=== PATIENT | male | born 1985 | race Two or more races ===

== ENCOUNTER 2019-06-26 11:21 | Emergency (ER) | payer SELFPAY ==
[~2019-06-26] VITALS: Ht 182.9 cm; Wt 136.1 kg
[2019-06-26 11:37] VITALS: BP 147/93
== END 2019-06-26 12:57 | disposition home or self-care (01) ==
LOC: ER 11:27
DX: M10.072 Idiopathic gout, left ankle and foot (principal)
CPT/HCPCS: 73630

== ENCOUNTER 2019-10-21 19:14 | Emergency (ER) | payer SELFPAY ==
[~2019-10-21] VITALS: Ht 182.9 cm; Wt 136.1 kg
[2019-10-21 21:19] VITALS: BP 133/58
== END 2019-10-21 21:27 | disposition home or self-care (01) ==
LOC: ER 19:14
DX: B07.0 Plantar wart (principal); M10.9 Gout, unspecified

== ENCOUNTER 2021-08-01 01:53 | Inpatient (IN) | payer MEDICAID, OTHER ==
[~2021-08-01] VITALS: Ht 182.9 cm; Wt 140.1 kg
[2021-08-01 02:53] LABS: Basophils # (auto) 0.3 10 ^3/uL (0-0.2); Basophils % (auto) 3.4 % (0.0-2.0); Eosinophils # (auto) 0 10 ^3/uL (0-0.8); Eosinophils % (auto) 0.5 % (0.0-7.0); Hematocrit 48.1 % (41.0-53.0); Hemoglobin 16.3 g/dL (13.5-17.5); Lymphocytes # (auto) 1.1 10 ^3/uL (0.4-5.4); Lymphocytes % (auto) 13.7 % (10.0-50.0); Mean Corpuscular Hemoglobin 28.8 pg (28.0-32.0); Mean Corpuscular Hgb Conc. 33.9 g/dL (32.0-36.0); Mean Corpuscular Volume 84.9 fL (80.0-100.0); Monocytes # (auto) 0.5 10 ^3/uL (0-1.3); Monocytes % (auto) 5.8 % (0.0-12.0); Neutrophils % (auto) 76.6 % (37.0-80.0); Nucleated Red Blood Cells % 0.1 %; Red Blood Cells 5.66 10^6/uL (4.5-5.90); Red Cell Distribution Width 12.9 % (11.8-14.3); White Blood Cell 7.8 10^3/uL (4.4-10.8)
[2021-08-01 03:19] LABS: INR 1.1 (0.9-1.15)
[2021-08-01 05:05] LABS: Albumin 3.1 g/dL (3.4-5.0); Calcium 7.8 mg/dL (8.5-10.1); Magnesium 2.6 mg/dL (1.6-2.6); Potassium 3.8 mmol/L (3.5-5.1)
[2021-08-01 05:17] LABS: BUN/Creatinine Ratio 12.8; Bilirubin, Total 0.6 mg/dL (0.2-1.0); CRP High Sensitivity 6.82 mg/dL (< 0.3); Total Protein 7.1 g/dL (6.4-8.2)
[2021-08-01] MEDS ORDERED: AZITHROMYCIN 500MG/ 250ML 250 ML IV ONE (05:30)
[2021-08-01] MEDS ORDERED: DexAMETHasone SOD PHOS 10MG/1ML VIAL INJ IV ONE (05:30)
[2021-08-01] MEDS ORDERED: IOHEXOL 350 MG/ML 100ML IJ ONE (05:39)
[2021-08-01] MEDS ORDERED: ACETAMINOPHEN 500 MG TAB PO PRN (05:45)
[2021-08-01] MEDS ORDERED: ONDANSETRON HCL 4 MG/2 ML VIAL IV PRN (05:45)
[2021-08-01] MEDS ORDERED: DOCUSATE SOD 100 MG CAP PO PRN (05:45)
[2021-08-01] MEDS ORDERED: SODIUM CHLORIDE 0.9% 1,000 ML IV SCH (05:45)
[2021-08-01] MEDS ORDERED: HYDROcodone-ACET 5/325MG TAB PO PRN (05:45)
[2021-08-01 06:05] LABS: Urine Bacteria NONE SEEN /hpf (None Seen); Urine Blood Negative /uL (Negative); Urine Mucus FEW (None Seen); Urine Specific Gravity 1.027 (1.001-1.035); Urine WBC 3 /hpf (0 - 3)
[2021-08-01] MEDS ORDERED: MORPHINE SULFATE INJECTION 2 MG/ML SYRG IV PRN (06:15)
[2021-08-01] MEDS ORDERED: NITROGLYCERIN 0.4 MG SL TAB SL PRN (06:15)
[2021-08-01 09:00] VITALS: BP 106/69
[2021-08-01 09:40] VITALS: BP 106/69
[2021-08-01] MEDS: ALBUTEROL SULF HFA 90MCG INH 200DOSE IN PRN ×2 (09:43→23:07)
[2021-08-01] MEDS: BUDESONIDE (INHALATION) 180 MCG IH IN SCH ×2 (09:43→22:00)
[2021-08-01] MEDS ORDERED: REMDESIVIR PER PHARMACY 0 ML IV SCH (10:15)
[2021-08-01] MEDS ORDERED: FUROSEMIDE 20 MG/2 ML VIAL IV ONE (10:15)
[2021-08-01] MEDS ORDERED: REMDESIVIR 200 MG in NS 210ml LOADING DOSE ADULT IV ONE (10:30)
[2021-08-01] MEDS: ASPirin 81 mg TAB PO SCH (10:37)
[2021-08-01] MEDS: FAMOTIDINE (10MG/ML) 2ML VL IV SCH ×2 (10:37→22:11)
[2021-08-01] MEDS: DexAMETHasone SOD PHOS 10MG/1ML VIAL INJ IV SCH (10:37)
[2021-08-01] MEDS: MULTIPLE VITAMIN TAB PO SCH (10:38)
[2021-08-01] MEDS: CHOLECALCIFEROL (VITD3) 2,000 UNIT CAP/TAB PO SCH (10:38)
[2021-08-01] MEDS: ZINC SULFATE 220mg CAP or TAB PO SCH (10:38)
[2021-08-01] MEDS: ENOXAPARIN SOD 40 MG/0.4 ML SYRINGE SC SCH ×2 (10:38→22:07)
[2021-08-01] MEDS: ASCORBIC ACID 1,000 MG TAB PO SCH (10:38)
[2021-08-01 13:00] VITALS: BP 104/53
[2021-08-01 17:00] VITALS: BP 122/78
[2021-08-01 22:00] VITALS: BP 122/69
[2021-08-02 05:00] VITALS: BP 118/61
[2021-08-02] MEDS: BUDESONIDE (INHALATION) 180 MCG IH IN SCH ×2 (06:16→19:52)
[2021-08-02] MEDS: ALBUTEROL SULF HFA 90MCG INH 200DOSE IN PRN ×2 (06:16→23:43)
[2021-08-02 06:34] LABS: Basophils # (auto) 0 10 ^3/uL (0-0.2); Basophils % (auto) 0.1 % (0.0-2.0); Eosinophils # (auto) 0 10 ^3/uL (0-0.8); Hematocrit 46.4 % (41.0-53.0); Hemoglobin 16.1 g/dL (13.5-17.5); Lymphocytes # (auto) 1.2 10 ^3/uL (0.4-5.4); Lymphocytes % (auto) 14.2 % (10.0-50.0); Mean Corpuscular Hemoglobin 29.2 pg (28.0-32.0); Mean Corpuscular Hgb Conc. 34.7 g/dL (32.0-36.0); Mean Corpuscular Volume 84.2 fL (80.0-100.0); Monocytes # (auto) 0.7 10 ^3/uL (0-1.3); Monocytes % (auto) 8.1 % (0.0-12.0); Neutrophils # (auto) 6.3 10 ^3/uL (1.6-8.6); Neutrophils % (auto) 77.6 % (37.0-80.0); Nucleated Red Blood Cells % 0.5 %; Red Blood Cells 5.51 10^6/uL (4.5-5.90); Red Cell Distribution Width 12.9 % (11.8-14.3); White Blood Cell 8.1 10^3/uL (4.4-10.8)
[2021-08-02 06:46] LABS: Calcium 8.2 mg/dL (8.5-10.1); Potassium 4.2 mmol/L (3.5-5.1)
[2021-08-02 06:51] LABS: BUN/Creatinine Ratio 18.9; Bilirubin, Total 0.5 mg/dL (0.2-1.0); Total Protein 6.5 g/dL (6.4-8.2)
[2021-08-02] MEDS: DexAMETHasone SOD PHOS 10MG/1ML VIAL INJ IV SCH (08:14)
[2021-08-02] MEDS: FUROSEMIDE 20 MG/2 ML VIAL IV SCH (08:19)
[2021-08-02] MEDS: AZITHROMYCIN 500MG/ 250ML 250 ML IV SCH (08:20)
[2021-08-02] MEDS: FAMOTIDINE (10MG/ML) 2ML VL IV SCH (08:20)
[2021-08-02] MEDS: ASPirin 81 mg TAB PO SCH (08:20)
[2021-08-02] MEDS: CHOLECALCIFEROL (VITD3) 2,000 UNIT CAP/TAB PO SCH (08:21)
[2021-08-02] MEDS: ZINC SULFATE 220mg CAP or TAB PO SCH (08:21)
[2021-08-02] MEDS: MULTIPLE VITAMIN TAB PO SCH (08:21)
[2021-08-02] MEDS: ASCORBIC ACID 1,000 MG TAB PO SCH (08:21)
[2021-08-02] MEDS: ENOXAPARIN SOD 40 MG/0.4 ML SYRINGE SC SCH ×2 (08:22→22:01)
[2021-08-02 08:30] VITALS: BP 117/60
[2021-08-02] MEDS ORDERED: ERGOCALCIFEROL 50,000 UNIT(1.25MG) CAP PO SCH (12:15)
[2021-08-02 13:00] VITALS: BP 121/63
[2021-08-02] MEDS: REMDESIVIR 100mg 100 MG in SODIUM CHL 0.9% 230 ML IV SCH (14:45)
[2021-08-02 16:30] VITALS: BP 130/74
[2021-08-02 22:00] VITALS: BP 114/65
[2021-08-03 05:00] VITALS: BP 103/58
[2021-08-03] MEDS: BUDESONIDE (INHALATION) 180 MCG IH IN SCH ×2 (07:29→22:00)
[2021-08-03] MEDS: ALBUTEROL SULF HFA 90MCG INH 200DOSE IN PRN ×2 (07:29→22:52)
[2021-08-03] MEDS: DexAMETHasone SOD PHOS 10MG/1ML VIAL INJ IV SCH (09:04)
[2021-08-03] MEDS: FUROSEMIDE 20 MG/2 ML VIAL IV SCH (09:05)
[2021-08-03] MEDS: AZITHROMYCIN 500MG/ 250ML 250 ML IV SCH (09:05)
[2021-08-03] MEDS: FAMOTIDINE 20 MG TAB PO SCH (09:06)
[2021-08-03] MEDS: MULTIPLE VITAMIN TAB PO SCH (09:06)
[2021-08-03] MEDS: ASPirin 81 mg TAB PO SCH (09:06)
[2021-08-03] MEDS: ZINC SULFATE 220mg CAP or TAB PO SCH (09:06)
[2021-08-03] MEDS: ENOXAPARIN SOD 40 MG/0.4 ML SYRINGE SC SCH ×2 (09:07→22:55)
[2021-08-03] MEDS: ASCORBIC ACID 1,000 MG TAB PO SCH (09:07)
[2021-08-03 09:50] LABS: Albumin 2.9 g/dL (3.4-5.0); Potassium 4.3 mmol/L (3.5-5.1)
[2021-08-03 09:54] LABS: BUN/Creatinine Ratio 19.8; Bilirubin, Total 0.6 mg/dL (0.2-1.0); Total Protein 6.4 g/dL (6.4-8.2)
[2021-08-03 09:55] VITALS: BP 113/69
[2021-08-03] MEDS: REMDESIVIR 100mg 100 MG in SODIUM CHL 0.9% 230 ML IV SCH (16:50)
[2021-08-03 17:55] VITALS: BP 125/67
[2021-08-03 22:00] VITALS: BP 138/78
[2021-08-04 05:00] VITALS: BP 126/63
[2021-08-04 06:22] LABS: Albumin 2.9 g/dL (3.4-5.0); Calcium 8.1 mg/dL (8.5-10.1); Potassium 4.6 mmol/L (3.5-5.1)
[2021-08-04 06:23] LABS: BUN/Creatinine Ratio 15.9
[2021-08-04 06:36] LABS: Bilirubin, Total 0.8 mg/dL (0.2-1.0); Total Protein 6.4 g/dL (6.4-8.2)
[2021-08-04] MEDS: ALBUTEROL SULF HFA 90MCG INH 200DOSE IN PRN (06:55)
[2021-08-04] MEDS: BUDESONIDE (INHALATION) 180 MCG IH IN SCH (06:55)
[2021-08-04 09:00] VITALS: BP 122/64
[2021-08-04] MEDS: DexAMETHasone SOD PHOS 10MG/1ML VIAL INJ IV SCH (10:40)
[2021-08-04] MEDS: FUROSEMIDE 20 MG/2 ML VIAL IV SCH (10:40)
[2021-08-04] MEDS: AZITHROMYCIN 500MG/ 250ML 250 ML IV SCH (10:41)
[2021-08-04] MEDS: FAMOTIDINE 20 MG TAB PO SCH (10:41)
[2021-08-04] MEDS: ASCORBIC ACID 1,000 MG TAB PO SCH (10:41)
[2021-08-04] MEDS: ASPirin 81 mg TAB PO SCH (10:41)
[2021-08-04] MEDS: ZINC SULFATE 220mg CAP or TAB PO SCH (10:41)
[2021-08-04] MEDS: ENOXAPARIN SOD 40 MG/0.4 ML SYRINGE SC SCH ×2 (10:41→22:01)
[2021-08-04] MEDS: MULTIPLE VITAMIN TAB PO SCH (10:41)
[2021-08-04 13:00] VITALS: BP 117/68
[2021-08-04] MEDS: REMDESIVIR 100mg 100 MG in SODIUM CHL 0.9% 230 ML IV SCH (15:00)
[2021-08-04 17:00] VITALS: BP 125/55
[2021-08-04 22:00] VITALS: BP 127/60
[2021-08-05 05:00] VITALS: BP 107/48
[2021-08-05] MEDS: BUDESONIDE (INHALATION) 180 MCG IH IN SCH (06:01)
[2021-08-05] MEDS: ALBUTEROL SULF HFA 90MCG INH 200DOSE IN PRN (06:01)
[2021-08-05 07:01] LABS: Basophils # (auto) 0 10 ^3/uL (0-0.2); Basophils % (auto) 0.1 % (0.0-2.0); Eosinophils # (auto) 0 10 ^3/uL (0-0.8); Eosinophils % (auto) 0.3 % (0.0-7.0); Hematocrit 44.7 % (41.0-53.0); Hemoglobin 15.8 g/dL (13.5-17.5); Lymphocytes # (auto) 1.5 10 ^3/uL (0.4-5.4); Lymphocytes % (auto) 14.7 % (10.0-50.0); Mean Corpuscular Hemoglobin 29.7 pg (28.0-32.0); Mean Corpuscular Hgb Conc. 35.3 g/dL (32.0-36.0); Mean Corpuscular Volume 84.1 fL (80.0-100.0); Monocytes % (auto) 9.8 % (0.0-12.0); Neutrophils # (auto) 7.6 10 ^3/uL (1.6-8.6); Neutrophils % (auto) 75.1 % (37.0-80.0); Nucleated Red Blood Cells % 0.1 %; Potassium 4.5 mmol/L (3.5-5.1); Red Blood Cells 5.32 10^6/uL (4.5-5.90); Red Cell Distribution Width 12.7 % (11.8-14.3); White Blood Cell 10.2 10^3/uL (4.4-10.8)
[2021-08-05 07:14] LABS: Albumin 2.9 g/dL (3.4-5.0); BUN/Creatinine Ratio 13.6; Bilirubin, Total 0.7 mg/dL (0.2-1.0); CRP High Sensitivity 4.05 mg/dL (< 0.3); Total Protein 6.5 g/dL (6.4-8.2)
[2021-08-05 09:00] VITALS: BP 116/61
[2021-08-05] MEDS: MULTIPLE VITAMIN TAB PO SCH (09:38)
[2021-08-05] MEDS: FAMOTIDINE 20 MG TAB PO SCH (09:38)
[2021-08-05] MEDS: DexAMETHasone SOD PHOS 10MG/1ML VIAL INJ IV SCH (09:38)
[2021-08-05] MEDS: ASPirin 81 mg TAB PO SCH (09:38)
[2021-08-05] MEDS: ZINC SULFATE 220mg CAP or TAB PO SCH (09:38)
[2021-08-05] MEDS: ASCORBIC ACID 1,000 MG TAB PO SCH (09:38)
[2021-08-05] MEDS: ENOXAPARIN SOD 40 MG/0.4 ML SYRINGE SC SCH (09:39)
[2021-08-05] MEDS: FUROSEMIDE 20 MG/2 ML VIAL IV SCH (09:39)
[2021-08-05] MEDS: AZITHROMYCIN 500MG/ 250ML 250 ML IV SCH (09:46)
[2021-08-05] MEDS ORDERED: ALBUAER3 IN (12:14)
[2021-08-05] MEDS ORDERED: METH4PAK PO (12:14)
[2021-08-05] MEDS ORDERED: ERGO1CAP23 PO (12:14)
[2021-08-05] MEDS ORDERED: ASPI1CHW15 PO (12:14)
[2021-08-05] MEDS ORDERED: AZIT250T PO (12:14)
[2021-08-05 13:00] VITALS: BP 112/66
[2021-08-05] MEDS: REMDESIVIR 100mg 100 MG in SODIUM CHL 0.9% 230 ML IV SCH (13:51)
[2021-08-05 13:52] VITALS: BP 112/66
== END 2021-08-05 15:13 | disposition home or self-care (01) | DRG 137 ==
LOC: ER 01:55 → OVERFLOW 01:56 → EAST 09:57
PROVIDERS: ADMIT Nurse Practitioner Family; ATTEND Internal Medicine
PROC: XW033E5 Introduction of Remdesivir Anti-infective into Peripheral Vein, Percutaneous Approach, New Technology Group 5 (ICD-10-PCS; principal; 2021-08-01)
DX: U07.1 COVID-19 (principal); J96.01 Acute respiratory failure with hypoxia; J12.82 Pneumonia due to coronavirus disease 2019; D68.59 Other primary thrombophilia; E87.1 Hypo-osmolality and hyponatremia; E88.09 Other disorders of plasma-protein metabolism, not elsewhere classified; Z68.41 Body mass index [BMI] 40.0-44.9, adult; E66.9 Obesity, unspecified; E55.9 Vitamin D deficiency, unspecified; R63.4 Abnormal weight loss; E11.65 Type 2 diabetes mellitus with hyperglycemia; E66.01 Morbid (severe) obesity due to excess calories; M10.9 Gout, unspecified; R79.89 Other specified abnormal findings of blood chemistry; Z71.3 Dietary counseling and surveillance; Z79.82 Long term (current) use of aspirin
CPT/HCPCS: 36415; 71045; 71275; 80053; 81001; 82306; 82728; 83036; 83605; 83615; 83735; 83880; 84443; 84484; 85025; 85379; 85610; 86141; 87040; 87426; 87804; 93005; 93970; 94640; 96361; 96374; 96375; G0378; J1100; J3490

== ENCOUNTER 2023-04-29 22:30 | Emergency (ER) | payer SELFPAY ==
[~2023-04-29] VITALS: Ht 182.9 cm; Wt 143.2 kg
[~2023-04-29 22:30] MED LIST: ALBUAER3 IN; ASPI-736 PO; AZIT-74 PO; ERGO1CAP23 PO; METH4PAK PO
[2023-04-30] MEDS ORDERED: KETOROLAC TROMETH 60MG/2ML VIAL IM ONE (00:30)
[2023-04-30] MEDS ORDERED: HYDROcodone-ACET 10/325MG TAB PO ONE (00:30)
[2023-04-30 01:05] LABS: Alanine Aminotransferase 71 U/L (7-40); Albumin 4.6 g/dL (3.2-4.8); Alkaline Phosphatase 91 U/L (46-116); Anion Gap 5 (5-15); Aspartate Aminotransferase 21 U/L (13-40); BUN/Creatinine Ratio 6.9 (10.0-20.0); Blood Urea Nitrogen 7 mg/dL (9-23); Calcium 9.6 mg/dL (8.7-10.4); Carbon Dioxide 29 mmol/L (20-30); Chloride 106 mmol/L (98-107); Glucose 148 mg/dL (74-106); Potassium 4.1 mmol/L (3.5-5.1); Sodium 140 mmol/L (136-145)
[2023-04-30 01:06] LABS: Bilirubin, Total 1.3 mg/dL (0.2-1.0); Total Protein 8.1 g/dL (5.7-8.2)
[2023-04-30 01:28] LABS: Uric Acid 7.1 mg/dL (3.7-9.2)
[2023-04-30] MEDS ORDERED: TRAM50TA2 PO (01:46)
[2023-04-30] MEDS ORDERED: IBUP-1455 PO (01:46)
[2023-04-30 02:01] VITALS: BP 127/57; PULSE 81; RESP 18; TEMP 97.6; O2SAT 94
[2023-04-30 02:18] LABS: Basophils # (auto) 0.1 10 ^3/uL (0-0.2); Eosinophils # (auto) 0.4 10 ^3/uL (0-0.8); Eosinophils % (auto) 2.8 % (0.0-7.0); Hemoglobin 16.5 g/dL (13.5-17.5); Lymphocytes # (auto) 4.1 10 ^3/uL (0.4-5.4); Mean Corpuscular Hemoglobin 30.1 pg (28.0-32.0); Monocytes # (auto) 1.1 10 ^3/uL (0-1.3); Neutrophils # (auto) 9.4 10 ^3/uL (1.6-8.6); Neutrophils % (auto) 62.2 % (37.0-80.0); Nucleated Red Blood Cells % 0.4 %; Red Blood Cells 5.47 10^6/uL (4.5-5.90); Red Cell Distribution Width 12.8 % (11.8-14.3); White Blood Cell 15.1 10^3/uL (4.4-10.8)
== END 2023-04-30 02:02 | disposition home or self-care (01) ==
LOC: ER 22:30
DX: M79.674 Pain in right toe(s) (principal); M10.9 Gout, unspecified; Z79.82 Long term (current) use of aspirin; Z79.899 Other long term (current) drug therapy
CPT/HCPCS: 36415; 80053; 84550; 85025; 96372; 99283; J1885